=== PATIENT | male | born 1975 | race Caucasian/White ===

== ENCOUNTER 2020-07-16 12:58 | Emergency (ER) | payer MEDICAID ==
[~2020-07-16] VITALS: Ht 182.9 cm; Wt 84.1 kg
[2020-07-16 13:32] VITALS: BP 119/80
[2020-07-16] MEDS ORDERED: IBUP-1984 PO (14:32)
== END 2020-07-16 14:51 | disposition home or self-care (01) ==
LOC: ER 12:59
DX: S93.402A Sprain of unspecified ligament of left ankle, initial encounter (principal); W17.89XA Other fall from one level to another, initial encounter; Y93.89 Activity, other specified; Y92.89 Other specified places as the place of occurrence of the external cause; Y99.8 Other external cause status
CPT/HCPCS: 73610; 73630; 99284

== ENCOUNTER 2024-11-11 18:33 | Inpatient (IN) | payer MEDICAID ==
[~2024-11-11] VITALS: Ht 182.9 cm; Wt 80.2 kg
[2024-11-11 19:12] LABS: BILIRUBIN,URINE NEGATIVE (Neg); CLARITY,URINE CLEAR (Clear); COLOR,URINE YELLOW (Yellow); GLUCOSE, URINE NEGATIVE (Neg); KETONES,URINE NEGATIVE (Neg); LEUKOCYTE ESTERASE ,URINE NEGATIVE (Neg); NITRITES, URINE NEGATIVE (Neg); OCCULT BLOOD,URINE NEGATIVE (Neg); PROTEIN,URINE TRACE mg/dl (Neg); UA COLLECTION TYPE CLN CATCH MIDSTREAM; UROBILINOGEN,URINE 0.2 E.U/dL (0.2-1.0)
[2024-11-11 19:13] LABS: BASOPHILS % (AUTO) 0.6 % (0-1); EOSINOPHILS # (AUTO) 0.3 X10'3 (0-0.9); EOSINOPHILS % (AUTO) 4.1 % (0-6); HEMOGLOBIN 15.8 g/dl (14.0-17.9); LYMPHOCYTES # (AUTO) 1.5 X10'3 (1.1-4.8); LYMPHOCYTES % (AUTO) 20.9 % (21-51); MEAN CORPUSCULAR HEMOGLOBIN 31.6 PG (27.0-31.0); MEAN CORPUSCULAR HGB CONC 33.7 g/dL (33.0-36.5); MEAN CORPUSCULAR VOLUME 93.9 FL (78-98); MEAN PLATELET VOLUME 7.5 FL (7.4-10.4); MONOCYTES # (AUTO) 0.9 X10'3 (0-0.9); MONOCYTES % (AUTO) 13.1 % (2-12); NEUTROPHILS # (AUTO) 4.4 X10'3 (1.8-7.7); NEUTROPHILS % (AUTO) 61.3 % (42-75); PLATELET COUNT 308 X10'3 (140-440); RED BLOOD COUNT 5.01 X10'6 (4.70-6.10); RED CELL DISTRIBUTION WIDTH 13.3 % (11.5-14.5); WHITE BLOOD COUNT 7.2 X10'3 (4.5-11.0)
[2024-11-11 19:26] LABS: ALANINE AMINOTRANSFERASE 64 U/L (12-78); ALBUMIN 3.4 G/DL (3.4-5.0); ALBUMIN/GLOBULIN RATIO 0.8 (1.1-1.5); ALKALINE PHOSPHATASE 74 IU/L (46-116); ANION GAP 6 (8-16); ASPARTATE AMINO TRANSFERASE 37 U/L (10-37); BILIRUBIN,TOTAL 0.9 MG/DL (0.1-1.0); BLOOD UREA NITROGEN 10 MG/DL (7-18); BUN/CREATININE RATIO 12.2 (10.0-20.0); CALCIUM 8.9 MG/DL (8.5-10.1); CHLORIDE 101 MMOL/L (99-107); CREATININE 0.82 MG/DL (0.60-1.10); GLUCOSE 91 MG/DL (70-104); LIPASE 36 U/L (16-77); SODIUM 135 MMOL/L (135-145); TOTAL PROTEIN 7.5 G/DL (6.4-8.2); eCRCL 122 ML/MIN; eGFR > 90 ML/MIN
[2024-11-11 19:27] LABS: BACTERIA,URINE FEW /HPF (Neg); CAL OXALATE CRYSTALS 2+ /HPF (NEGATIVE); MUCUS STRANDS MODERATE /LPF (Neg); RBC,URINE NONE SEEN /HPF (0-2); SQUAMOUS EPITHELIAL CELL,UR FEW /LPF (FEW); WBC,URINE 0-4 /HPF (0-4)
[2024-11-11] MEDS: ondansetron 4mg rapidly disintigrating tab PO ONE (20:24)
[2024-11-11] MEDS ORDERED: HYDROcodone/acetaminophen 5mg/325mg tablet PO PRN (22:50)
[2024-11-11] MEDS ORDERED: ondansetron/PF 4mg/2ml inj IV PRN (22:50)
[2024-11-11] MEDS ORDERED: magnesium Cl slow-release 64mg tablet PO PRN (22:50)
[2024-11-11] MEDS ORDERED: metoclopramide 5 mg/ml inj IV PRN (22:50)
[2024-11-11] MEDS ORDERED: morphine 2 MG/ML inj. syringe IV PRN ×2 (22:50)
[2024-11-11] MEDS ORDERED: ondansetron 4mg rapidly disintigrating tab PO PRN (22:50)
[2024-11-11] MEDS ORDERED: mag hydrox/Alum hydrox/simeth 30ml oral suspension PO PRN (22:50)
[2024-11-11] MEDS ORDERED: potassium Cl 40MEQ/1/2NS 520ml 520 ML IV PRN (22:50)
[2024-11-11] MEDS ORDERED: bisacodyl 10mg suppository rectal RC PRN (22:50)
[2024-11-11] MEDS ORDERED: HYDROmorphone inj. 0.5 MG/0.5 ML DISP.SYRIN IV PRN (22:50)
[2024-11-11] MEDS ORDERED: magnesium hydroxide 30ml (MOM) UD suspension PO PRN (22:50)
[2024-11-11] MEDS ORDERED: magnesium sulf-water 4G/100mL 100 ML IV PRN (22:50)
[2024-11-11] MEDS ORDERED: HYDROcodone/acetaminophen 10/325mg tab PO PRN (22:50)
[2024-11-11] MEDS ORDERED: acetaminophen 325mg tablet PO PRN ×2 (22:50)
[2024-11-11] MEDS ORDERED: potassium Cl 20 mEq SR tablet PO PRN ×2 (22:50)
[2024-11-11] MEDS ORDERED: magnesium sulf-water 2g/50mL 50 ML IV PRN (22:50)
[2024-11-11] MEDS: morphine 4 MG/ML inj SYRINge IV ONE (23:42)
[2024-11-11] MEDS: ondansetron/PF 4mg/2ml inj IV ONE (23:42)
[2024-11-11] MEDS: normal saline 1000ml 1,000 ML IV ONE (23:45)
[2024-11-12] VITALS (8 sets, daily range): BP systolic 122–149; BP diastolic 79–93; PULSE 74–102; RESP 14–22; TEMP 96.9–98.4; O2SAT 96–100
[2024-11-12] MEDS: normal saline 1000ml 1,000 ML IV SCH (00:14)
[2024-11-12] MEDS ORDERED: NO HOME MEDS (00:18)
[2024-11-12 05:26] LABS: BASOPHILS # (AUTO) 0.1 X10'3 (0-0.2); EOSINOPHILS # (AUTO) 0.3 X10'3 (0-0.9); EOSINOPHILS % (AUTO) 5.6 % (0-6); HEMATOCRIT 39.9 % (42.0-52.0); LYMPHOCYTES # (AUTO) 1.7 X10'3 (1.1-4.8); LYMPHOCYTES % (AUTO) 30.4 % (21-51); MEAN CORPUSCULAR HEMOGLOBIN 32.4 PG (27.0-31.0); MEAN CORPUSCULAR HGB CONC 35.1 g/dL (33.0-36.5); MEAN CORPUSCULAR VOLUME 92.4 FL (78-98); MEAN PLATELET VOLUME 6.9 FL (7.4-10.4); MONOCYTES # (AUTO) 0.6 X10'3 (0-0.9); MONOCYTES % (AUTO) 11.3 % (2-12); NEUTROPHILS # (AUTO) 2.8 X10'3 (1.8-7.7); NEUTROPHILS % (AUTO) 51.7 % (42-75); PLATELET COUNT 270 X10'3 (140-440); RED BLOOD COUNT 4.32 X10'6 (4.70-6.10); RED CELL DISTRIBUTION WIDTH 13.3 % (11.5-14.5); WHITE BLOOD COUNT 5.4 X10'3 (4.5-11.0)
[2024-11-12 06:19] LABS: ALANINE AMINOTRANSFERASE 55 U/L (12-78); ALBUMIN 2.9 G/DL (3.4-5.0); ALKALINE PHOSPHATASE 64 IU/L (46-116); ANION GAP 7 (8-16); ASPARTATE AMINO TRANSFERASE 26 U/L (10-37); BILIRUBIN,TOTAL 0.8 MG/DL (0.1-1.0); BLOOD UREA NITROGEN 9 MG/DL (7-18); BUN/CREATININE RATIO 11.4 (10.0-20.0); CALCIUM 7.9 MG/DL (8.5-10.1); CHLORIDE 105 MMOL/L (99-107); CREATININE 0.79 MG/DL (0.60-1.10); GLUCOSE 80 MG/DL (70-104); MAGNESIUM 1.7 MG/DL (1.5-2.4); POTASSIUM 3.9 MMOL/L (3.5-5.1); SODIUM 138 MMOL/L (135-145); TOTAL CARBON DIOXIDE 26.2 MMOL/L (24-32); TOTAL PROTEIN 5.7 G/DL (6.4-8.2); eCRCL 127 ML/MIN; eGFR > 90 ML/MIN
[2024-11-12] MEDS: docusate sod 100mg capsule PO SCH (08:00)
[2024-11-12] MEDS: enoxaparin 40mg/0.4ml syringe SUBCUT SCH (08:18)
[2024-11-12] MEDS: K and/or MAG REPLACEMENT MC SCH (08:25)
[2024-11-12 18:47] LABS: URINE AMPHETAMINE SCREEN POSITIVE (Neg); URINE BARBITUATE SCREEN NEGATIVE (Neg); URINE BENZODIAZEPINES SCREEN NEGATIVE (Neg); URINE CANNABINOID SCREEN NEGATIVE (Neg); URINE COCAINE SCREEN NEGATIVE (Neg); URINE METHADONE SCREEN NEGATIVE (Neg); URINE OPIATE SCREEN POSITIVE (Neg); URINE PHENCYCLIDINE SCREEN NEGATIVE (Neg)
[2024-11-13 05:26] LABS: BASOPHILS % (AUTO) 0.3 % (0-1); EOSINOPHILS # (AUTO) 0.2 X10'3 (0-0.9); HEMATOCRIT 42.7 % (42.0-52.0); HEMOGLOBIN 14.7 g/dl (14.0-17.9); LYMPHOCYTES # (AUTO) 1.1 X10'3 (1.1-4.8); LYMPHOCYTES % (AUTO) 13.6 % (21-51); MEAN CORPUSCULAR HEMOGLOBIN 32.2 PG (27.0-31.0); MEAN CORPUSCULAR HGB CONC 34.5 g/dL (33.0-36.5); MEAN CORPUSCULAR VOLUME 93.2 FL (78-98); MEAN PLATELET VOLUME 7.1 FL (7.4-10.4); MONOCYTES # (AUTO) 0.8 X10'3 (0-0.9); MONOCYTES % (AUTO) 9.8 % (2-12); NEUTROPHILS # (AUTO) 5.9 X10'3 (1.8-7.7); NEUTROPHILS % (AUTO) 74.3 % (42-75); PLATELET COUNT 266 X10'3 (140-440); RED BLOOD COUNT 4.58 X10'6 (4.70-6.10); RED CELL DISTRIBUTION WIDTH 12.9 % (11.5-14.5)
[2024-11-13 05:44] LABS: ALANINE AMINOTRANSFERASE 52 U/L (12-78); ALBUMIN 2.9 G/DL (3.4-5.0); ALKALINE PHOSPHATASE 72 IU/L (46-116); ANION GAP 12 (8-16); ASPARTATE AMINO TRANSFERASE 25 U/L (10-37); BILIRUBIN,TOTAL 1.2 MG/DL (0.1-1.0); BLOOD UREA NITROGEN 9 MG/DL (7-18); BUN/CREATININE RATIO 12.3 (10.0-20.0); CALCIUM 8.1 MG/DL (8.5-10.1); CHLORIDE 103 MMOL/L (99-107); CREATININE 0.73 MG/DL (0.60-1.10); GLUCOSE 65 MG/DL (70-104); MAGNESIUM 1.9 MG/DL (1.5-2.4); POTASSIUM 3.9 MMOL/L (3.5-5.1); SODIUM 139 MMOL/L (135-145); TOTAL CARBON DIOXIDE 23.7 MMOL/L (24-32); TOTAL PROTEIN 5.9 G/DL (6.4-8.2); eCRCL 137 ML/MIN; eGFR > 90 ML/MIN
[2024-11-13 06:00] VITALS: BP 127/84; PULSE 89; RESP 19; TEMP 97.8; O2SAT 96
[2024-11-13 11:15] VITALS: BP 125/78; PULSE 86; RESP 22; TEMP 99; O2SAT 97
[2024-11-13] MEDS: nicotine 14mg patch - 24hr TD SCH (13:03)
[2024-11-13 17:17] VITALS: BP 142/93; PULSE 87; RESP 16; TEMP 98.6; O2SAT 98
[2024-11-13 20:00] VITALS: RESP 16; O2SAT 100
[2024-11-13 22:00] VITALS: BP 140/89; PULSE 81; RESP 16; TEMP 98.2; O2SAT 100
[2024-11-14 05:22] LABS: BASOPHILS % (AUTO) 0.5 % (0-1); EOSINOPHILS # (AUTO) 0.2 X10'3 (0-0.9); EOSINOPHILS % (AUTO) 3.2 % (0-6); HEMATOCRIT 44.6 % (42.0-52.0); HEMOGLOBIN 15.2 g/dl (14.0-17.9); LYMPHOCYTES # (AUTO) 1.4 X10'3 (1.1-4.8); LYMPHOCYTES % (AUTO) 18.1 % (21-51); MEAN CORPUSCULAR HEMOGLOBIN 31.8 PG (27.0-31.0); MEAN CORPUSCULAR HGB CONC 34.1 g/dL (33.0-36.5); MEAN CORPUSCULAR VOLUME 93.2 FL (78-98); MEAN PLATELET VOLUME 7.3 FL (7.4-10.4); MONOCYTES # (AUTO) 0.7 X10'3 (0-0.9); MONOCYTES % (AUTO) 8.9 % (2-12); NEUTROPHILS # (AUTO) 5.2 X10'3 (1.8-7.7); NEUTROPHILS % (AUTO) 69.3 % (42-75); PLATELET COUNT 288 X10'3 (140-440); RED BLOOD COUNT 4.78 X10'6 (4.70-6.10); RED CELL DISTRIBUTION WIDTH 13.4 % (11.5-14.5); WHITE BLOOD COUNT 7.5 X10'3 (4.5-11.0)
[2024-11-14 05:37] LABS: ALANINE AMINOTRANSFERASE 38 U/L (12-78); ALBUMIN 2.8 G/DL (3.4-5.0); ALBUMIN/GLOBULIN RATIO 0.8 (1.1-1.5); ALKALINE PHOSPHATASE 65 IU/L (46-116); ANION GAP 9 (8-16); ASPARTATE AMINO TRANSFERASE 22 U/L (10-37); BILIRUBIN,TOTAL 0.8 MG/DL (0.1-1.0); BLOOD UREA NITROGEN 6 MG/DL (7-18); BUN/CREATININE RATIO 8.1 (10.0-20.0); CALCIUM 8.3 MG/DL (8.5-10.1); CHLORIDE 104 MMOL/L (99-107); CREATININE 0.74 MG/DL (0.60-1.10); GLUCOSE 80 MG/DL (70-104); MAGNESIUM 1.9 MG/DL (1.5-2.4); POTASSIUM 3.6 MMOL/L (3.5-5.1); SODIUM 138 MMOL/L (135-145); TOTAL CARBON DIOXIDE 25.5 MMOL/L (24-32); TOTAL PROTEIN 6.5 G/DL (6.4-8.2); eCRCL 135 ML/MIN; eGFR > 90 ML/MIN
[2024-11-14 06:00] VITALS: BP 142/88; PULSE 81; RESP 16; TEMP 98.8; O2SAT 100
[2024-11-14 10:00] VITALS: BP 128/75; PULSE 77; RESP 24; TEMP 98.1; O2SAT 98
[2024-11-14 15:55] VITALS: RESP 16; O2SAT 98
[2024-11-14 18:00] VITALS: BP 126/93; PULSE 96; RESP 18; TEMP 97; O2SAT 94
[2024-11-14 20:00] VITALS: RESP 16; O2SAT 98
[2024-11-14 22:00] VITALS: BP 125/76; PULSE 75; RESP 16; TEMP 98.2; O2SAT 98
[2024-11-14] MEDS: nicotine 14mg patch - 24hr TD SCH (23:24)
[2024-11-15 05:06] LABS: BASOPHILS # (AUTO) 0.1 X10'3 (0-0.2); BASOPHILS % (AUTO) 0.8 % (0-1); EOSINOPHILS # (AUTO) 0.3 X10'3 (0-0.9); EOSINOPHILS % (AUTO) 4.1 % (0-6); HEMOGLOBIN 14.2 g/dl (14.0-17.9); LYMPHOCYTES # (AUTO) 1.7 X10'3 (1.1-4.8); LYMPHOCYTES % (AUTO) 23.3 % (21-51); MEAN CORPUSCULAR HEMOGLOBIN 32.3 PG (27.0-31.0); MEAN CORPUSCULAR HGB CONC 34.7 g/dL (33.0-36.5); MEAN CORPUSCULAR VOLUME 93.2 FL (78-98); MEAN PLATELET VOLUME 6.9 FL (7.4-10.4); MONOCYTES # (AUTO) 0.7 X10'3 (0-0.9); MONOCYTES % (AUTO) 9.1 % (2-12); NEUTROPHILS # (AUTO) 4.6 X10'3 (1.8-7.7); NEUTROPHILS % (AUTO) 62.7 % (42-75); PLATELET COUNT 237 X10'3 (140-440); RED CELL DISTRIBUTION WIDTH 13.2 % (11.5-14.5); WHITE BLOOD COUNT 7.4 X10'3 (4.5-11.0)
[2024-11-15 05:40] LABS: ALANINE AMINOTRANSFERASE 49 U/L (12-78); ALBUMIN 2.5 G/DL (3.4-5.0); ALBUMIN/GLOBULIN RATIO 0.7 (1.1-1.5); ALKALINE PHOSPHATASE 57 IU/L (46-116); ANION GAP 8 (8-16); ASPARTATE AMINO TRANSFERASE 36 U/L (10-37); BILIRUBIN,TOTAL 0.4 MG/DL (0.1-1.0); BLOOD UREA NITROGEN 6 MG/DL (7-18); BUN/CREATININE RATIO 7.9 (10.0-20.0); CALCIUM 8.2 MG/DL (8.5-10.1); CHLORIDE 108 MMOL/L (99-107); CREATININE 0.76 MG/DL (0.60-1.10); GLUCOSE 103 MG/DL (70-104); MAGNESIUM 1.8 MG/DL (1.5-2.4); SODIUM 139 MMOL/L (135-145); TOTAL CARBON DIOXIDE 23.4 MMOL/L (24-32); TOTAL PROTEIN 6.1 G/DL (6.4-8.2); eCRCL 132 ML/MIN; eGFR > 90 ML/MIN
[2024-11-15 06:00] VITALS: BP 129/81; PULSE 65; RESP 18; TEMP 98.1; O2SAT 98
[2024-11-15 10:00] VITALS: BP 120/80; PULSE 89; RESP 18; TEMP 98.6; O2SAT 98
== END 2024-11-15 12:40 | disposition home or self-care (01) | DRG 247 ==
LOC: ER 18:34 → ED HOLD 22:50 → SUR 3N 11-12 01:05
PROVIDERS: ADMIT Internal Medicine Critical Care Medicine; ATTEND Internal Medicine
PROC: 0D9670Z Drainage of Stomach with Drainage Device, Via Natural or Artificial Opening (ICD-10-PCS; principal; 2024-11-11)
DX: K56.600 Partial intestinal obstruction, unspecified as to cause (principal); F15.10 Other stimulant abuse, uncomplicated; F17.210 Nicotine dependence, cigarettes, uncomplicated
CPT/HCPCS: 36415; 43762; 74018; 74176; 80053; 80305; 81001; 83605; 83690; 83735; 83880; 84145; 85025; 87081; 99285; A6258; G0378; J1650; J2270; J2405; J7030

== ENCOUNTER 2024-12-22 11:32 | Inpatient (IN) | payer MEDICAID ==
[~2024-12-22] VITALS: Ht 182.9 cm; Wt 93.2 kg
[2024-12-22] VITALS (9 sets, daily range): BP systolic 90–112; BP diastolic 63–80; PULSE 54–97; RESP 10–20; TEMP 98.2; O2SAT 95–99
[2024-12-22] MEDS ORDERED: heparin 25,000 UNIT/250ml bag 250 ML IV PRN (11:40)
[2024-12-22] MEDS ORDERED: heparin 10,000 units/1 ML INJ IV PRN (11:40)
[2024-12-22] MEDS ORDERED: heparin 10,000 units/1 ML INJ IV ONE (11:40)
--- NOTE | 2024-12-22 11:41 | Physician Documentation ---
History of Present Illness ~ Chief Complaint: Chest Pain Stated Complaint: CP/NUMBNESS Time Seen by MD: 11:38 Primary Medical Doctor: None Source: family (mother) HPI 49-year-old male history of tobacco use presenting for chest pain. Began 15 minutes prior to arrival. Described as crushing sensation associated with shortness of breath. Endorses meth use last night. He was just admitted for small-bowel obstruction on November 11 and discharged on November 14 after undergoing conservative management with NG tube placement and IV fluids. Medication Reconciliation Allergies: Coded Allergies: No Known Allergies (Unverified , 07/16/20) No Active Prescriptions or Reported Meds Past Medical History Past Medical History: No Pertinent History Past Surgical History: noncontributory Alcohol Use: None Drug Use: none Review of Systems Constitutional: Reports: diaphoresis; Denies: fever Respiratory: Reports: shortness of breath; Denies: cough Cardiovascular: Reports: chest pain Gastrointestinal: Denies: abdominal pain Physical Exam Vital Signs: Temperature: 97.2, Source: Temporal, Heart Rate: 107, Respiratory Rate: 20, BP: 128/90, Pulse Oximetry: 97, Weight: 93.180 Oxygen Flow Rate: 0 Physical Exam Diaphoretic, ashen Pulmonary clear to auscultation bilaterally Cardiac no murmur no JVD no lower extremity edema Abdomen soft nontender Neuro awake alert oriented Progress Progress Note 1148 d/w Dr. Vigil cardiolist at bedside agrees with STEMI activation, plan for emergent PCI Results/Orders Results/Orders Orders - EMELY FRY MD Cbc/Diff (12/22/24 11:39) Electrocardiogram (12/22/24 11:39) Chest,Single View (12/22/24 11:39) Saline Lock (12/22/24 11:39) Monitor (12/22/24 11:39) Oxygen (12/22/24 11:39) Nitroglycerin Sublingual Tab (Nitrostat (12/22/24 11:40) Hs Troponin I W Calculations (12/22/24 13:39) Hs Troponin I W Calculations (12/22/24 14:39) Heparin 25,000 Unit/250ml Bag (Heparin 2 (12/22/24 11:40) Heparin 10,000 Unit/Ml 1ml (Heparin 10,0 (12/22/24 11:40) Page Hospitalist (12/22/24 11:41) Fill Out Med Reconciliation (12/22/24 11:41) Drug Screen, Urine (12/22/24 12:03) Hs Troponin I W Calculations (12/22/24 12:09) BMP (12/22/24 12:09) MG (12/22/24 12:09) PBNP (12/22/24 12:09) Pt Inr (12/22/24 12:09) PTT (12/22/24 12:09) Completed Orders - EMELY FRY MD Aspirin 81mg Chew Tablet (Aspirin 81mg C (12/22/24 11:40) Heparin 10,000 Unit/Ml 1ml (Heparin 10,0 (12/22/24 11:55) Lorazepam Inj (Ativan Inj) (12/22/24 12:00) Labetalol Inj. (Trandate 20 Mg/4ml Syrin (12/22/24 12:00) Message To Nursing (12/22/24 12:00) Lidocaine 1% 30ml Vial (Xylocaine 1% Via (12/22/24 12:00) Midazolam 1 Mg/Ml 2ml Inj. (Versed 1 Mg/ (12/22/24 12:01) Fentanyl/Pf (Fentanyl 0.05 Mg/Ml Syringe (12/22/24 12:01) Iohexol 350mg/Ml 50ml Inj (Omnipaque 350 (12/22/24 12:01) Heparin 1,000unit/Ml 10ml Vial (Heparin (12/22/24 12:01) Iohexol 350mg/Ml 100ml (Omnipaque 350mg/ (12/22/24 12:01) Heparin 1,000 Units/Ns 500ml (Heparin 1, (12/22/24 12:01) Nitroglycerin 500mcg/5ml D5w (Nitroglyce (12/22/24 12:01) Medications Received in ER Medications (Trade) Dose Ordered Sig/Danya Route PRN Reason Start Time Stop Time Status Last Admin Dose Admin (aspirin 81MG chew tablet) 324 mg ONCE ONCE PO 12/22/24 11:40 12/22/24 11:42 DC 12/22/24 11:49 324 MG (Nitrostat SL tablet) 0.4 mg Q5MIN PRN SL Chest pain Q5min PRNx3-call 12/22/24 11:40 12/23/24 11:39 12/22/24 11:55 0.4 MG (heparin 10,000 unit/ml 1ml inj) 4,000 units ONCE ONCE IV 12/22/24 11:55 12/22/24 11:56 DC 12/22/24 12:07 4,000 UNITS (Ativan inj) 1 mg ONCE ONCE IV 12/22/24 12:00 12/22/24 12:01 DC 12/22/24 12:02 1 MG (Trandate 20 mg/ 4ml syringe) 10 mg ONCE ONCE IV 12/22/24 12:00 12/22/24 12:01 DC 12/22/24 12:03 10 MG Vital Signs 12/22/24 12/22/24 11:39 11:56 Temp 97.2 Pulse 107 104 Resp 20 16 B/P (MAP) 128/90 127/63 (84) Pulse Ox 97 99 O2 Flow Rate 0 0 Laboratory Tests Test 12/22/24 11:55 CBC Comment Coagulation Comments Chemistry Comments EKG/XRAY/CT/US/VASC/MRI EKG : Additional Comment I independently interpreted EKG time 11:32 a.m. indication chest pain normal sinus rhythm rate 63 normal axis normal intervals inferior ST-elevation ST depression lead I, aVL Heart Score: Heart Score Response (Comments) Value History Highly Suspicious [address]-Deviation 2 Age 45-64 1 Risk Factors 1 or 2 risk factors 1 Troponin N/A 0 Total 6 Medical Decision Making Additional info obtained from: old records, family Additional Information Acute coronary syndrome, aortic dissection Departure Disposition: ADMITTED INPATIENT Admitted to Inpatient Unit: to hospitalist Impression: Primary Impression: STEMI (ST elevation myocardial infarction) Qualified Codes: I21.3 - ST elevation (STEMI) myocardial infarction of unspecified site Additional Impression: Methamphetamine abuse Referrals: NO PRIMARY CARE PROVIDER (PCP) Prescriptions No Active Prescriptions or Reported Meds Critical Care Note Total Time (mins): 30 Critical Care Note The very real possibility of a deterioration of this patient's condition required the highest level of my preparedness for sudden, emergent intervention. I provided critical care services, which included medication orders, frequent reevaluations of the patient's condition and response to treatment, ordering and reviewing test results, and discussing the case with various consultants. Excludes time spent performing separately billable procedures. The critical care time associated with the care of the patient was 30 minutes in the management of acute ST-elevation AL Signature Scribe Signature: sterling Attestation: EMELY Tomlinson MD December 22, 2024 11:41
[2024-12-22] MEDS: aspirin 81mg tab.chew PO ONE (11:49)
[2024-12-22] MEDS: nitroGLYCERIN 0.4mg SUBLingual tab SL PRN (11:55)
[2024-12-22] MEDS ORDERED: LIDOcaine 1% 30ml preserv. free vial ONE (12:00)
[2024-12-22] MEDS ORDERED: fentaNYL/PF 50MCG/1 ML 2ML syringe ONE (12:01)
[2024-12-22] MEDS ORDERED: iohexol 350 MG/ML 50ML vial IV ONE (12:01)
[2024-12-22] MEDS ORDERED: heparin 1,000unit/ml 10ml vial 10 ML ONE (12:01)
[2024-12-22] MEDS ORDERED: iohexol 350MG/ML 100ml bottle IV ONE ×2 (12:01→12:38)
[2024-12-22] MEDS ORDERED: nitroGLYCERIN 500mcg/5mL D5W 5 ML IV ONE (12:01)
[2024-12-22] MEDS ORDERED: midazolam 1 mg/ML 2ml injection ONE (12:01)
[2024-12-22] MEDS: LORazepam 2 mg/ml vial IV ONE (12:02)
[2024-12-22] MEDS: labetalol 20mg/4ml (5mg/ml) syringe IV ONE (12:03)
[2024-12-22] MEDS: MESSAGE TO NURSING IV ONE (12:05)
[2024-12-22 12:07] LABS: BASOPHILS # (AUTO) 0.1 X10'3 (0-0.2); BASOPHILS % (AUTO) 0.7 % (0-1); EOSINOPHILS # (AUTO) 0.3 X10'3 (0-0.9); EOSINOPHILS % (AUTO) 3.4 % (0-6); HEMOGLOBIN 15.9 g/dl (14.0-17.9); LYMPHOCYTES # (AUTO) 2.6 X10'3 (1.1-4.8); LYMPHOCYTES % (AUTO) 29.3 % (21-51); MEAN CORPUSCULAR HGB CONC 33.9 g/dL (33.0-36.5); MEAN CORPUSCULAR VOLUME 94.2 FL (78-98); MEAN PLATELET VOLUME 7.5 FL (7.4-10.4); MONOCYTES # (AUTO) 0.5 X10'3 (0-0.9); MONOCYTES % (AUTO) 5.5 % (2-12); NEUTROPHILS # (AUTO) 5.5 X10'3 (1.8-7.7); NEUTROPHILS % (AUTO) 61.1 % (42-75); PLATELET COUNT 406 X10'3 (140-440); RED BLOOD COUNT 4.98 X10'6 (4.70-6.10); RED CELL DISTRIBUTION WIDTH 14.1 % (11.5-14.5); WHITE BLOOD COUNT 8.9 X10'3 (4.5-11.0)
[2024-12-22] MEDS: heparin 10,000 units/1 ML INJ IV ONE (12:07)
[2024-12-22] MEDS ORDERED: verapamil 2.5 mg/ml inj IV ONE (12:10)
[2024-12-22] MEDS ORDERED: acetaminophen 325mg tablet PO PRN (12:15)
[2024-12-22] MEDS ORDERED: ondansetron/PF 4mg/2ml inj IV PRN (12:15)
[2024-12-22] MEDS ORDERED: atorvastatin 20mg tablet PO SCH (12:20)
[2024-12-22] MEDS ORDERED: DOPamine 400mg/D5W 250ml 250 ML IV ONE (12:30)
[2024-12-22] MEDS ORDERED: atropine 0.1mg/ml 10ml syringe ONE (12:30)
--- NOTE | 2024-12-22 12:34 | HISTORY AND PHYSICAL-Residence ---
History & Physical Providers to CC Resident Creating Document: JESSY OCAMPO RES ~ History of Present Illness Primary Medical Doctor: None Reason for Admit\Complaint: Chest pain/STEMI History of Present Illness The patient is a 49-year-old male with a longstanding history of methamphetamine use (30 years) and cigarette smoking ( -1 pck/day), who does not have a PCP, lives in a trailer on his mother's property and wears an ankle monitor was brought to the ER by his mother (Andreea Cam [phone]) after a sudden onset of severe, crushing chest pain. The pain was described as 10/10 in intensity, located on the left side, and radiating to the right chest, left arm, and neck. It was associated with diaphoresis and shortness of breaths. Per mom, the pain began while he was at home, managed to walk approximately 20 years to his mother's house, reported the pain and therefore she decided to bring him to the hospital. His mother was present at the bedside and contributed to the history. Confirming the timeline and severity of the symptoms. In ER, he was evaluated by Dr. Loaiza, EKGs showed ST segment elevation in leads two, three, and AVF, as well as some anterior leads, with a reciprocal depression in lead I and aVL., concerning for an acute inferior myocardial infarction. The patient was urgently taken to the lab courier after receiving aspirin, nitroglycerin, and heparin infusion. Allergies: Coded Allergies: No Known Allergies (Unverified , 07/16/20) Home Medications Home Medications Active No Active Prescriptions or Reported Medications Past Medical History Past Medical History No significant past medical history except recent admission for partial bowel obstruction which was treated conservatively. Past Surgical History Surgical History Comment No surgical history Past Social History Social History Comment The patient is a 49-year-old male with a longstanding history of methamphetamine use (30 years) and cigarette smoking ( -1 pck/day), who does not have a PCP, lives in a trailer on his mother's property and wears an ankle monitor Alcohol Use: None Drug Use: None ROS All Other Systems: Reviewed and Negative ROS As stated above in the HPI, otherwise all systems are reviewed and negative. Constitutional: Reports: diaphoresis; Denies: fever Respiratory: Reports: shortness of breath; Denies: cough Cardiovascular: Reports: chest pain Gastrointestinal: Denies: abdominal pain Exam Vitals: Vital Signs Date Time Temp Pulse Resp B/P (MAP) Pulse Ox O2 Delivery O2 Flow Rate FiO2 12/22/24 12:05 68 16 116/77 (90) 95 0 12/22/24 11:39 97.2 General Appearance: In acute distress due to crushing chest pain 10/10 HEENT: Atraumatic, normocephalic, HUMZA, EOMI. Normal oropharynx, moist oral mucosa. Neck: Trachea midline. Supple, normal ROM. No JVD, bruit, lymphadenopathy or masses, or other lesions. Respiratory: Chest wall is symmetric and without deformity. No signs of respiratory distress. Equal breath sounds bilaterally. No wheeze, rub, Rales or crackles. Cardiac: RRR, no murmur, rub or gallop. Normal S1 and S2. GI: No tenderness. Abdomen symmetric, nondistended, soft, normal bowel sounds x4 quadrant normoactive. No guarding, no rebound or rigidity. No hepatosplenomegaly. No masses, no bruit, no flank pain bilaterally. Extremities: Normal ROM, no swelling, non-tender. Distal pulses full symmetrical, no clubbing, cyanosis, edema, capillary refill less than 2 seconds. Wearing an ankle monitor/bracelet Skin: Intact, dry, warm, no rashes or petechia. Neuro: Speech is clear, alert and oriented x4. No sensory or motor deficit, DTRs normal. Cranial nerves II to XII intact. Psych: Normal affect, good eye contact, no apparent hallucination, normal speech. Diagnostic Data Last Recorded Lab Results: 12/22/24 1155 Diagnostic Data: Laboratory Tests Test 12/22/24 11:55 Coagulation Comments Advance Care Planning Advanced Care plannin - 30 Minutes Additional Plan Assessment and plan: This is a 49-year-old male who was brought to the ER by his mother (Andreea Cam [phone]) after a sudden onset of severe, crushing chest pain. The pain was described as 10/10 in intensity, located on the left side, and radiating to the right chest, left arm, and neck. It was associated with diaphoresis and shortness of breaths. ST-elevation myocardial infarction/STEMI Inferior/- + anterior wall Presented with classic ischemic chest pain and EKG showing ST elevation in inferior leads, and some anterior leads, with reciprocal changes. Troponin elevated Taken emergently to the cardiac catheterization lab for evaluation and reperfusion - awaiting lab courier findings for coronary anatomy intervention Received aspirin, nitroglycerin, heparin infusion Started atorvastatin 40 mg, carvedilol 3.125 mg, and lisinopril 5 mg Monitor serial troponins, telemetry, and EKGs Dr. Vigil is leading management Hyperlipidemia: LDL 131, goal < 70 Continue atorvastatin 40 mg daily Repeat lipid panel in three months outpatient Methamphetamine use disorder: Chronic methamphetamine use; 30 years Major risk factor for vasospasm, arrhythmia, and premature CAD Toxicology screen obtained Dr. Vigil educated him on Cardiac risk of continued meth use rehabilitation services counselor consult, substance use navigator consult requested Tobacco use disorder: Longstanding daily smoking Strongly encouraged smoking cessation Social and living situation/barriers to care Lives in a trailer on mother's property; no PCP We will consider involving social work for support with follow up, transportation, and linkage to primary care We will discuss close outpatient cardiology follow up post discharge DVT prophylaxis: On heparin infusion Code status: Full code Jessy Ocampo Internal Medicine Resident Date of Service: December 22, 2024 Billing Provider: FABIÁN VALENCIA MD Common Visit Codes: [id number] INP/OBS CARE (HIGH) JESSY OCAMPO, VICTORINA December 22, 2024 12:34 FABIÁN VALENCIA MD December 25, 2024 17:33
[2024-12-22] MEDS ORDERED: phenylephrine 10mg/ml inj. ONE (12:43)
[2024-12-22] MEDS ORDERED: DOBUTamine-DoBUTrex 500mg/D5W 250 ML IV ONE (12:53)
[2024-12-22 13:05] LABS: ALBUMIN 2.9 G/DL (3.4-5.0); ANION GAP 7 (8-16); BLOOD UREA NITROGEN 8 MG/DL (7-18); BUN/CREATININE RATIO 10.3 (10.0-20.0); CALCIUM 7.8 MG/DL (8.5-10.1); CHLORIDE 106 MMOL/L (99-107); CHOL/HDL RATIO 4.2 (0.00-4.99); CHOLESTEROL 189 MG/DL (0-200); CREATININE 0.78 MG/DL (0.60-1.10); GLUCOSE 123 MG/DL (70-104); HDL CHOLESTEROL 45 MG/DL (35-60); LDL CHOLESTEROL 131 MG/DL (50-100); MAGNESIUM 1.7 MG/DL (1.5-2.4); POTASSIUM 3.1 MMOL/L (3.5-5.1); PRO BRAIN NATRIURETIC PEPTIDE 83 PG/ML (0-125); SODIUM 138 MMOL/L (135-145); TRIGLYCERIDES 67 MG/DL (20-135); eCRCL 127 ML/MIN; eGFR > 90 ML/MIN
[2024-12-22 13:11] LABS: INR 1.2 INR; PROTHROMBIN TIME 11.9 SECONDS (9.0-12.0)
[2024-12-22] MEDS ORDERED: clopidogrel 300mg tablet ONE (13:18)
[2024-12-22] MEDS ORDERED: NORepinephrine 1 mg/ml inj IV ONE (13:23)
[2024-12-22 13:27] LABS: APTT > 139 SECONDS (22-32)
[2024-12-22] MEDS ORDERED: magnesium 1 GM/2 ML inj ONE (13:56)
[2024-12-22] MEDS: magnesium sulf-water 2g/50mL 50 ML IV ONE (14:10)
[2024-12-22] MEDS ORDERED: potassium Cl 40MEQ/1/2NS 520ml 520 ML IV PRN ×2 (15:30→15:35)
[2024-12-22] MEDS ORDERED: potassium Cl 40MEQ/270ML bag 270 ML IV PRN (15:30)
[2024-12-22] MEDS ORDERED: potassium Cl 20 mEq SR tablet PO PRN ×3 (15:30→15:35)
[2024-12-22] MEDS ORDERED: potassium CL 10mEq/100ml bag 100 ML IV PRN (15:35)
[2024-12-22] MEDS ORDERED: potassium Cl 40MEQ/270ML bag 250 ML IV PRN (15:35)
[2024-12-22] MEDS ORDERED: potassium Cl 20mEq/100mL bag 100 ML IV PRN (15:35)
[2024-12-22] MEDS: normal saline 1000ml 1,000 ML IV SCH (15:40)
[2024-12-22] MEDS: potassium Cl 20 mEq SR tablet PO ONE ×2 (15:41→15:45)
[2024-12-22] MEDS ORDERED: NO HOME MEDS (16:37)
[2024-12-22] MEDS: carVEDilol 3.125mg tablet PO SCH (20:00)
[2024-12-23] VITALS (9 sets, daily range): BP systolic 97–111; BP diastolic 62–68; PULSE 73–95; RESP 13–25; TEMP 96.9–98.4; O2SAT 95–98
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
--- NOTE | 2024-12-23 05:20 | CARDIOLOGY REPORT ---
DATE OF SERVICE: 12/22/2024 DICTATING PHYSICIAN: JANET Vigil MD CARDIAC CATHETERIZATION GENDER: Male AGE: 49 HEIGHT: 182.8 cm. WEIGHT: 93.18 kg. BODY SURFACE AREA: 2.15 m2. INDICATION: The patient is a 49-year-old male with chronic history of smoking with amphetamine abuse, 30 minutes arrival to the ER, developed severe substernal chest discomfort, sharpness, who came to the Emergency Room and found to have inferior and lateral ST elevation and ST depression in lead 1 and AVL. After discussing risks, benefits, and alternative options, the patient agreed to proceed with coronary angiography. Risks, benefits, and alternative options were discussed. Informed consent obtained. PROCEDURE TECHNIQUE: The patient underwent left heart catheterization from right radial approach, 6-[place] right radial sheath. Post-procedure access site hemostasis secured with right radial band. The patient had right heart catheterization from right femoral approach, 6-[place] right femoral artery sheath. Post-procedure access site sutured to the groin. The patient tolerated the procedure well. COMPLICATIONS: None. PROCEDURES DONE: * Ultrasound-guided right radial artery visualization and access. * Left heart catheterization. * Right heart catheterization. * LVG. * Coronary cineangiography. * Angioplasty of the proximal right coronary artery. * Stenting of the right coronary artery. * Intravascular ultrasound of the right coronary artery. * Conscious sedation 90 minutes. FINDINGS: HEMODYNAMICS: Aortic systolic was initially below 50s-60s, subsequently improved with Levophed to 100. Diastolic was 35. Aortic mean was 42 mmHg. LVDP of 16 mmHg. There is no significant gradient across the aortic valve. Pulmonary capillary wedge pressure 16 mmHg. Right atrial mean 10 mmHg. RV pressure 35/13 mmHg. PA pressure 32/19 mmHg. Aortic oxygen saturation 94%. Pulmonary artery oxygen saturation is 6%. Cardiac output by thermodilution method is 10.23 L and cardiac index is 4.75 L/min/m2. LEFT VENTRICULOGRAM: LV overall ventricular systolic function, now with an ejection fraction of 65%-70%. CORONARY CINEANGIOGRAPHY: Left main coronary artery is a large caliber arising from the left aortic sinus, engaged with JL4 catheter, right radial approach. No significant disease seen. LAD is a medium caliber vessel arising at the bifurcating left main coronary artery and coursing through the anterior interventricular groove, wrapping around the apex. Diagonal is a 3 mm, which divided into 2 divisions. Circumflex artery is a medium caliber vessel arising at the bifurcation of left main coronary artery and coursing through the left AV groove. It had mild luminal irregularities principal obtuse marginal branch, which is 3.5 mm in diameter. Principal OM is about 3-mm vessel, which divides into 2 divisions, superior division is about 2.5 mm in diameter and inferiorly 2 mm in diameter. Then, circumflex artery OM 2, 3, and 4 are 1.5-mm caliber vessel with minimal luminal irregularities and OM 5 is 2-mm caliber with mild luminal irregularities. The right coronary artery is a medium to large caliber dominant vessel arising from the aortic sinus and course through the interventricular groove, ends at the posterior crux by dividing into PDA and posterolateral branches. Proximal RCA has 98% thrombotic lesion. Diversion to distal PDA and posterolateral branch. Rest of the visualized had mild luminal irregularities. PDA is 3 mm with minimal luminal irregularities, posterolateral 2-mm caliber with mild luminal irregularities. PTCA STENTING OF THE PROXIMAL RIGHT CORONARY ARTERY: After adequate heparinization, PTCA stenting was carried out. A 6-[place] XT RCA guide without side hole gave good support. Lesion crossed with PT2 moderate wire. Lesion was angioplastied with 2.5/12 mm semi compliant balloon at 8 atmospheric pressure. Lesion was stented with 3.5 x 18 mm Resolute Colton stent at 12 atmospheric pressure. Post-procedure, there was a little bit of spasm at the proximal , which resolved with intracoronary nitroglycerin. INTRAVASCULAR ULTRASOUND: The patient did have intravascular ultrasound of the stented RCA with IVUS catheter and it showed that the stent was well deployed. There is significant amount of plaque. Proximally, there was only spasm with no edge dissection. IMPRESSION: A 49-year-old male with LVEF of 65%-70%. LVEDP of 16 mmHg with no gradient across the aortic valve. Pulmonary capillary wedge pressure of 16 mmHg. PA pressure of 32/19 mmHg. Left main normal. LAD with mild luminal irregularities. Circumflex with minimal disease. Proximal RCA, acute thrombotic 98% narrowing, successful angioplasty stented with 3.5 x 18 mm Resolute [place]. Intravascular ultrasound subsequently showed well-deployed stent with no edge dissection. RECOMMENDATIONS: Recommend continued aggressive coronary risk factor modification, namely low-fat, low-cholesterol diet, maintaining ideal body weight, keeping LDL less than 70 mg and regular exercise program. The importance of uninterrupted aspirin and Plavix for at least 1 year emphasized to the patient and his mother. The patient was recommended to quit amphetamines and tobacco abuse. JANET Vigil MD TID: [id number] RECEIPT: [id number] LEYLA/EDILMA/RACHAEL MTDD
--- NOTE | 2024-12-23 05:37 | ELECTROCARDIOGRAPH REPORT ---
[facility] Test Date: 2024-12-22 Test Time: 15:23:18 Pat Name: SANDOVAL JUAN Department: 2ND FLOOR [id number] Room: [address] Gender: M Manager Creative: : 1975 Requested By: EMELY FRY Order Number: [id number] Reading MD: Dr. JANET Vigil Measurements Intervals [place] Rate: 90 P: 79 DE: 162 QRS: 8 QRSD: 102 T: 9 QT: 393 QTc: 481 Interpretive Statements Age not entered, assumed to be 51 years old for purpose of ECG interpretation Sinus rhythm Probable inferior infarct, old Anterolateral infarct, age indeterminate Electronically Signed On 12-23-2024 19:13:[address] JANET Vigil Please click the below link to view image of tracing.
--- NOTE | 2024-12-23 05:38 | ELECTROCARDIOGRAPH REPORT ---
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 Channing Dale Measurements Intervals [place] Rate: 63 P: -24 RI: 144 QRS: 75 QRSD: 92 T: 100 QT: 411 QTc: 421 Interpretive Statements Sinus rhythm Repol abnrm suggests ischemia, lateral leads ST elevation, consider inferior injury Electronically Signed On 12-25-2024 21:45:[address] Channing Dale Please click the below link to view image of tracing.
[2024-12-23 06:03] LABS: ISTAT HGB ART 13.3 g/dl (14.0-17.9); ISTAT Hct ART 39 %PCV (42-52); ISTAT O2 SATURATION ARTERIAL 94 % (95-98); ISTAT SOURCE BLNK
[2024-12-23 06:04] LABS: ISTAT HGB MIX 13.6 g/dl (14.0-17.9); ISTAT Hct MIX 40 %PCV (42-52); ISTAT O2 SATURATION MIX VENOUS 76 % (60-80); ISTAT SOURCE BLNK
[2024-12-23] MEDS ORDERED: aspirin 81mg, enteric-coated 1 TAB TABLET.DR PO SCH (08:00)
[2024-12-23] MEDS ORDERED: K and/or MAG REPLACEMENT MC SCH (08:00)
[2024-12-23] MEDS: lisinopril 5mg tablet PO SCH (08:00)
[2024-12-23 08:11] LABS: BASOPHILS # (AUTO) 0.1 X10'3 (0-0.2); BASOPHILS % (AUTO) 0.6 % (0-1); EOSINOPHILS # (AUTO) 0.2 X10'3 (0-0.9); EOSINOPHILS % (AUTO) 2.2 % (0-6); HEMATOCRIT 40.8 % (42.0-52.0); HEMOGLOBIN 13.6 g/dl (14.0-17.9); LYMPHOCYTES # (AUTO) 1.9 X10'3 (1.1-4.8); LYMPHOCYTES % (AUTO) 21.2 % (21-51); MEAN CORPUSCULAR HEMOGLOBIN 31.8 PG (27.0-31.0); MEAN CORPUSCULAR HGB CONC 33.3 g/dL (33.0-36.5); MEAN CORPUSCULAR VOLUME 95.5 FL (78-98); MEAN PLATELET VOLUME 7.1 FL (7.4-10.4); MONOCYTES # (AUTO) 0.7 X10'3 (0-0.9); MONOCYTES % (AUTO) 7.7 % (2-12); NEUTROPHILS # (AUTO) 6.1 X10'3 (1.8-7.7); NEUTROPHILS % (AUTO) 68.3 % (42-75); PLATELET COUNT 281 X10'3 (140-440); RED BLOOD COUNT 4.27 X10'6 (4.70-6.10); WHITE BLOOD COUNT 8.9 X10'3 (4.5-11.0)
[2024-12-23] MEDS: clopidogrel 75mg tablet PO SCH (08:20)
[2024-12-23] MEDS: aspirin 81mg, enteric-coated 1 TAB TABLET.DR PO SCH (08:21)
[2024-12-23] MEDS: atorvastatin 20mg tablet PO SCH (08:22)
[2024-12-23 08:42] LABS: APTT 27 SECONDS (22-32); PROTHROMBIN TIME 10.4 SECONDS (9.0-12.0)
[2024-12-23 08:49] LABS: ALANINE AMINOTRANSFERASE 49 U/L (12-78); ALBUMIN 2.8 G/DL (3.4-5.0); ALBUMIN/GLOBULIN RATIO 0.9 (1.1-1.5); ALKALINE PHOSPHATASE 69 IU/L (46-116); ANION GAP 7 (8-16); ASPARTATE AMINO TRANSFERASE 109 U/L (10-37); BILIRUBIN,TOTAL 0.6 MG/DL (0.1-1.0); BLOOD UREA NITROGEN 7 MG/DL (7-18); BUN/CREATININE RATIO 8.1 (10.0-20.0); CALCIUM 8.1 MG/DL (8.5-10.1); CHLORIDE 107 MMOL/L (99-107); CREATININE 0.86 MG/DL (0.60-1.10); GLUCOSE 86 MG/DL (70-104); MAGNESIUM 1.9 MG/DL (1.5-2.4); PHOSPHORUS 3.7 MG/DL (2.3-4.5); PRO BRAIN NATRIURETIC PEPTIDE 647 PG/ML (0-125); SODIUM 138 MMOL/L (135-145); TOTAL CARBON DIOXIDE 23.6 MMOL/L (24-32); TOTAL PROTEIN 5.9 G/DL (6.4-8.2); eCRCL 115 ML/MIN; eGFR > 90 ML/MIN
[2024-12-23 08:54] LABS: POTASSIUM 4.3 MMOL/L (3.5-5.1)
--- NOTE | 2024-12-23 08:54 | ELECTROCARDIOGRAPH REPORT ---
[facility] Test Date: 2024-12-23 Test Time: 08:53:28 Pat Name: SANDOVAL JUAN Department: [facility] 3S Room: [place] [address] [address] Gender: M Time Study Technologist: GRACIE : 1975 Requested By: THERESA VIGIL Order Number: [id number] Reading MD: Dr. JANET Vigil Measurements Intervals [place] Rate: 96 P: 78 [place]: 145 QRS: -20 QRSD: 91 T: -26 QT: 366 QTc: 463 Interpretive Statements Sinus rhythm Abnormal R-wave progression, early transition Inferior infarct, age indeterminate Electronically Signed On 12-23-2024 19:13:[address] JANET Vigil Please click the below link to view image of tracing.
[2024-12-23] MEDS: PERFLUTREN PROTEIN-A MICROSPHR (Optison) 0.22 MG/ML 3ML VIAL IV ONE (11:30)
--- NOTE | 2024-12-23 18:21 | PROGRESS NOTE- Residence ---
Progress Note - Resident Providers to CC Resident Creating Document: SUSIE CLARK RES CC: FABIÁN VALENCIA MD ~ Antibiotic Timeout Antibiotic Ordered?: No Subjective Patient was examined at bedside. Patient does not complain of chest pain. No subjective complaints or acute overnight events. Objective Vital Signs Date Time Temp Pulse Resp B/P (MAP) Pulse Ox O2 Delivery O2 Flow Rate FiO2 12/23/24 15:42 98.0 95 20 110/66 (81) 96 Room Air 12/22/24 20:00 0.0 Result Diagram: 12/23/24 0754 12/23/24 0754 General: Alert, awake, oriented, not in acute distress HEENT: PERRLA, no icterus, pallor, lymphadenopathy, carotid bruit Respiratory system: Bilateral vesicular breath sounds heard, no adventitious breath sounds CVS: S1-S2 heard, no murmurs/rubs/gallop GI: Soft, nontender, no organomegaly, no guarding/rigidity, bowel sounds present Neuro: No focal neurological deficits present Extremities: Femoral access site for catheterization is clean without hematoma redness or warmth or erythema, No edema cyanosis clubbing/deformities Skin: Warm and dry Coagulation Studies Laboratory Tests Test 12/22/24 13:18 12/23/24 07:54 Activated Clotting Time 198 SEC (101-148) H Prothrombin Time 10.4 SECONDS (9.0-12.0) INR International Normalized Ratio 1.0 INR Activated Partial Thromboplast Time 27 SECONDS (22-32) Coagulation Comments Assessment Assessment This is a 49-year-old male who was brought to the ER by his mother (Andreea Cam [phone]) after a sudden onset of severe, crushing chest pain. EKG showed ST elevations in the inferior leads. STEMI was called. Patient was transferred to the warehouse laborer with stent placed in the RCA on 12/22/2024 Plan Plan STEMI status post stent in RCA on 12/22/2024 Heparin drip discontinued Continue aspirin 162 mg, Plavix 75 mg, atorvastatin 80 mg, carvedilol 3.125 mg, and lisinopril 5 mg Sublingual nitroglycerin p.r.n. for chest pain EKG in a.m. Counseling on methamphetamine use and DAPT for one year Hyperlipidemia: LDL 131, goal < 70 Continue atorvastatin 80 mg daily Repeat lipid panel in three months outpatient Methamphetamine use disorder: Chronic methamphetamine use; 30 years Major risk factor for vasospasm, arrhythmia, and premature CAD Toxicology screen obtained Dr. Vigil educated him on Cardiac risk of continued meth use environmental services coordinator consult, substance use navigator consult requested Tobacco use disorder: Longstanding daily smoking Strongly encouraged smoking cessation Social and living situation/barriers to care Lives in a trailer on mother's property; no PCP We will consider involving social work for support with follow up, transportation, and linkage to primary care We will discuss close outpatient cardiology follow up post discharge Code status: Full code Anticoagulation: Aspirin, Plavix Diet: Heart healthy Disposition: Continue care in PCU, probable discharge tomorrow, EKG in a.m. Susie Clark MD Internal Medicine, PGY 1 Date of Service: December 23, 2024 Billing Provider: FABIÁN VALENCIA MD Common Visit Codes: [id number] INP/OBS CARE(HIGH) SUSIE CLARK, RES December 23, 2024 18:21 FABIÁN VALENCIA MD December 25, 2024 17:33
--- NOTE | 2024-12-23 19:12 | PROGRESS NOTE ---
Progress Note Cardiology Providers to CC ~ Subjective Subjective Patient seen and examined this evening. Overall he is doing well with no chest pain or shortness of breath. Objective Result Diagram: 12/23/24 0754 12/23/24 0754 Objective General: Normal body habitus, no acute distress, HEENT: Sclerae clear, PERRL, gums without lesions or bleeding, oropharynx clear without erythema or exudate. Neck: Supple without enlargement of the thyroid, or lymphadenopathy, Chest: Normal size and shape, no tenderness, nonlabored breathing, Breath sounds clear to auscultation. Heart: Regular in rate and rhythm, S1 and S2 normal, no S3-S4 or murmurs. Abdomen: Soft, nontender, no organomegaly, bowel sounds present. Extremities: No edema cyanosis or clubbing. Coagulation Studies Laboratory Tests Test 12/22/24 13:18 12/23/24 07:54 Activated Clotting Time 198 SEC (101-148) H Prothrombin Time 10.4 SECONDS (9.0-12.0) INR International Normalized Ratio 1.0 INR Activated Partial Thromboplast Time 27 SECONDS (22-32) Coagulation Comments Problem\Assessment\Plan Additional Plan 1. * A 49-year-old chronic methamphetamine user, last use yesterday morning and a current tobacco smoker, presenting with STEMI, inferolateral ST elevation. Patient underwent coronary angiography On 12/13 found to have 98% thrombotic occlusion of proximal RCA which was successfully angioplastied and stented with 3.5/18 resolute sakina stent. Importance of uninterrupted aspirin and Plavix at least for one year emphasized to the patient. 2. * Chronic history of tobacco use and possible COPD, continue smoking cessation. 3. * Chronic methamphetamine abuse, counselled on methamphetamine abuse cessation. Patient to follow up with PMD. THERESA MUJICA MD December 23, 2024 19:12
--- NOTE | 2024-12-23 19:23 | CARDIOLOGY REPORT ---
APPROVED REPORT EXAM: Comprehensive 2D, Doppler, and color-flow Echocardiogram. Patient Location: [address] Blood Pressure: 110/66 mmHg Heart Rate: 82 bpm Rhythm: SINUS Indications CORONARY ARTERY DISEASE SMOKER METHAMPHETAMINE USE STEMI, S/P RCA STENT X1 Golf Sales Associate: Brody Vigil MD (consult) Previous echo: none 2D Dimensions IVSd 1.2 (0.7-1.1cm) LVDd 3.8 cm PWd 1.0 (0.7-1.1cm) IVSs 1.3 (0.8-1.2cm) LVDs 2.7 (2.5-4.0cm) PWs 1.3 (0.8-1.2cm) LVOT Diameter 2.15 (1.8-2.4cm) LVEF(%) 56.0 (>50%) Ao Asc Diam.3.19 cmIVC 12.64 mm FS (%) 28.7 % SV 34.8 ml CO 3.0 L/min M-Mode Dimensions Left Atrium(MM) 3.05 (2.5-4.0cm) Aortic Root 2.92 (2.2-3.7cm) Aortic Cusp Exc 2.33 (1.5-2.0cm) Aortic Valve AoV Peak Shantanu. 153.8 cm/s AoV VTI 26.3 cm AO Peak GR. 9.5 mmHg AO Mean GR. 5 mmHg LVOT VTI 21.71 cm LVOT Peak Shantanu. 111.6 cm/s SANDRA(VTI)/BSA 3.00 cm2/m2 SANDRA (VTI) 3.00 cm2 Mitral Valve MV E Velocity 99.5 cm/s MV Peak Gr. 4 mmHg MV DECEL TIME 240 ms MV A Velocity 78.9 cm/s MV PHT 56 ms E/A Ratio 1.3 MVA (PHT) 3.93 cm2 MV VMax96.9 cm/s TDI Medial E' P. V 10.37 cm/s E/Medial E' 9.6 Pulmonary Vein S1 Velocity 42.3 cm/s D2 Velocity 30.9 cm/s PVa Qsaxeprk19.9 cm/s PVa Bpmycbtf01 msec LEFT VENTRICLE Small LV size and normal function. Mild concentric hypertrophy. Overall LVEF is 55-60%. RIGHT VENTRICLE RV is normal size and function. ATRIA LA size is normal. AORTIC VALVE Trileaflet AV appears mildly sclerotic without stenosis. Trivial insufficiency. MITRAL VALVE Mild MV annular calcification without stenosis. Mild regurgitation. TRICUSPID VALVE TV appears structurally normal with trace regurgitation. PULMONIC VALVE Normal PV without stenosis, physiologic insufficiency. GREAT VESSELS Aortic root is normal in size. Ascending aorta is normal in size. The IVC is normal in size and colla pses greater than 50% with inspiration. PERICARDIUM Normal pericardium. No effusion. Other Information Study Quality: Adequate Conclusion Overall LVEF is 55-60%. Small LV size and normal function. Mild concentric hypertrophy. RV is normal size and function. Trileaflet AV appears mildly sclerotic without stenosis. Trivial insufficiency. Mild MV annular calcification without stenosis. Mild regurgitation. TV appears structurally normal with trace regurgitation. Normal PV without stenosis, physiologic insufficiency. Normal pericardium. No effusion.
[2024-12-23] MEDS: nicotine 14mg patch - 24hr TD ONE (22:53)
[2024-12-24 02:00] VITALS: BP 97/59; PULSE 76; RESP 20; TEMP 98.3; O2SAT 97
[2024-12-24 06:51] VITALS: BP 103/68; PULSE 85; RESP 20; TEMP 98.7; O2SAT 97
[2024-12-24 08:00] VITALS: RESP 20; O2SAT 85
--- NOTE | 2024-12-24 09:24 | ELECTROCARDIOGRAPH REPORT ---
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 JANET Vigil Measurements Intervals [place] Rate: 96 P: 86 OR: 145 QRS: -29 QRSD: 91 T: -47 QT: 405 QTc: 512 Interpretive Statements Sinus rhythm Probable inferior infarct, old Anterolateral infarct, age indeterminate Prolonged QT interval Electronically Signed On 12-24-2024 17:45:[address] JANET Vigil Please click the below link to view image of tracing.
--- NOTE | 2024-12-24 09:42 | PROGRESS NOTE ---
Progress Note Cardiology Providers to CC ~ Subjective Subjective Patient seen and examined this morning before discharge. Overall he is doing well. No chest pain or shortness of breath. Objective Result Diagram: 12/23/24 0754 12/23/24 0754 Objective General: Normal body habitus, no acute distress, HEENT: Sclerae clear, PERRL, gums without lesions or bleeding, oropharynx clear without erythema or exudate. Neck: Supple without enlargement of the thyroid, or lymphadenopathy, Chest: Normal size and shape, no tenderness, nonlabored breathing, Breath sounds improved in bases. Heart: Regular in rate and rhythm, S1 and S2 normal, no S3-S4 or murmurs. Abdomen: Soft, nontender, no organomegaly, bowel sounds present. Extremities: No edema cyanosis or clubbing. Coagulation Studies Laboratory Tests Test 12/22/24 13:18 12/23/24 07:54 Activated Clotting Time 198 SEC (101-148) H Prothrombin Time 10.4 SECONDS (9.0-12.0) INR International Normalized Ratio 1.0 INR Activated Partial Thromboplast Time 27 SECONDS (22-32) Coagulation Comments Problem\Assessment\Plan Additional Plan 1. * A 49-year-old chronic methamphetamine user, last use yesterday morning and a current tobacco smoker, presenting with STEMI, inferolateral ST elevation. Patient underwent coronary angiography On 12/13 found to have 98% thrombotic occlusion of proximal RCA which was successfully angioplastied and stented with 3.5/18 resolute sakina stent. Importance of uninterrupted aspirin and Plavix at least for one year emphasized to the patient. 2. * Chronic history of tobacco use and possible COPD, continue smoking cessation. 3. * Chronic methamphetamine abuse, counselled on methamphetamine abuse cessation. Discussion with patient about stopping methamphetamine abuse cessation. Patient responded by saying that he does not think it is related to his heart attack and probably he will continue to use it. Patient to follow up with PMD. THERESA MUJICA MD December 24, 2024 09:42
[2024-12-24 11:00] VITALS: BP 106/66; PULSE 85; RESP 14; TEMP 97.7; O2SAT 95
[2024-12-24] MEDS ORDERED: CLOP75TA34 PO (12:47)
[2024-12-24] MEDS ORDERED: ASPI-1071 PO (12:47)
[2024-12-24] MEDS ORDERED: CARV-164 PO (12:47)
[2024-12-24] MEDS ORDERED: ATOR20TA66 PO (12:47)
[2024-12-24] MEDS ORDERED: LISI5TAB22 PO (12:47)
[2024-12-24 15:00] VITALS: BP 103/65; PULSE 99; RESP 13; TEMP 98.7; O2SAT 93
--- NOTE | 2024-12-24 17:59 | DISCHARGE SUMMARY-Residence ---
Discharge Summary Providers to CC Resident Creating Document: SUSIE GÓMEZ, RES CC: FABIÁN VALENCIA MD ~ Discharge Summary Assessment This is a 49-year-old male who was brought to the ER by his mother (Andreea Cam [phone]) after a sudden onset of severe, crushing chest pain. EKG showed ST elevations in the inferior leads. STEMI was called. Patient was transferred to the analytical lab analyst with stent placed in the RCA on 12/22/2024 Admission Diagnosis: STEMI Hospital Course DATE OF ADMISSION: 12/22/24 DATE OF DISCHARGE: 12/24/24 Discharge Diagnosis\Comment: STEMI Hyperlipidemia Methamphetamine use disorder Tobacco use disorder Unstable social and living situation barriers Operations\Procedures: Cardiac catheterization Consultants: Dr. Vigil (business intelligence administrator) Complications: None Condition on DC: Stable New Medications: Aspirin (Ecotrin*) 81 Mg Tablet.dr 2 TAB PO DAILY for 30 Days, #60 TAB.SR Atorvastatin Calcium (Atorvastatin Calcium) 20 Mg Tablet 80 MG PO DAILY for 30 Days, #30 TAB Carvedilol (Carvedilol) 3.125 Mg Tablet 3.125 MG PO BID for 30 Days, #30 TAB Clopidogrel Bisulfate (Clopidogrel) 75 Mg Tablet 75 MG PO DAILY for 90 Days, #90 TAB Do not stop medication unless instructed by prescriber. Lisinopril (Lisinopril) 5 Mg Tablet 5 MG PO DAILY for 30 Days, #30 TAB Discontinued Medications: Home Med List (No Home Medications) Each Discharge Summary: 49-year-old male was brought into the ER by his mother in view of crushing chest pain, was found to have elevated troponins and EKG showed ST elevations in the inferior leads. Patient was emergently taken to the cardiac catheterization lab. Patient was found to have 90% stenosis of the right coronary artery which was stented. Patient was observed for another day, EKG was reason which showed appropriate progression of STEMI with ST depressions and T-wave depressions. Patient was able to walk without any chest pain and was chest pain-free. Patient's femoral access site is clean without hematoma, erythema or warmth. Patient's medications have been optimized as per GDM T. Patient is hemodynamically stable for discharge. Patient was clearly consult about quitting methamphetamine and tobacco use. Physical examination at discharge: General: Alert, awake, oriented, not in acute distress HEENT: PERRLA, no icterus, pallor, lymphadenopathy, carotid bruit Respiratory system: Bilateral vesicular breath sounds heard, no adventitious breath sounds CVS: S1-S2 heard, no murmurs/rubs/gallop GI: Soft, nontender, no organomegaly, no guarding/rigidity, bowel sounds present Neuro: No focal neurological deficits present Extremities: Femoral access site for catheterization is clean without hematoma redness or warmth or erythema, No edema cyanosis clubbing/deformities Skin: Warm and dry Labs at discharge: WBC: 8.9, H/H: 13.6/40.8, platelet count: 281 Sodium: 138, potassium: 4.2, BUN: Seven, creatinine: 0.86 Imaging: Echo:Overall LVEF is 55-60%. Small LV size and normal function. Mild concentric hypertrophy. RV is normal size and function. Discharge medications can be found above patient is discharged home with the following recommendations: Follow up with your primary care within two weeks of discharge. Follow up with Dr. Vigil(business intelligence administrator) within two weeks of discharge. Please take aspirin and Plavix for one year, strict recommendation. Please maintain compliance We also gave you statin, please maintain compliance We gave you lisinopril and carvedilol which will optimize your heart function, please maintain compliance Strict recommendation to quit methamphetamine. Return to ER in view of chest pain, palpitations, dizziness, shortness of breaths. *Problems/Diagnosis: (1) STEMI (ST elevation myocardial infarction) Status: Acute (2) Methamphetamine abuse Status: Acute Total Time Spent on D/C: > 30 Minutes Date of Service: December 24, 2024 Billing Provider: FABIÁN VALENCIA MD Common Visit Codes: 77186-BFX/OBS DISCH DAY >30min Problem Qualifiers (1) STEMI (ST elevation myocardial infarction): Involved coronary artery: unspecified coronary artery Qualified Codes: I21.3 - ST elevation (STEMI) myocardial infarction of unspecified site SUSIE GÓMEZ RES December 24, 2024 17:59 FABIÁN VALENCIA MD December 25, 2024 17:33
== END 2024-12-24 15:20 | disposition home or self-care (01) | DRG 174 ==
LOC: ER 11:33 → ED HOLD 12:15 → CICU 2S 15:20 → PCU 3S 22:00
PROVIDERS: ADMIT Family Medicine; ATTEND Family Medicine
PROC: 027034Z Dilation of Coronary Artery, One Artery with Drug-eluting Intraluminal Device, Percutaneous Approach (ICD-10-PCS; principal; 2024-12-22)
PROC: 4A023N8 Measurement of Cardiac Sampling and Pressure, Bilateral, Percutaneous Approach (ICD-10-PCS; 2024-12-22)
PROC: B2111ZZ Fluoroscopy of Multiple Coronary Arteries using Low Osmolar Contrast (ICD-10-PCS; 2024-12-22)
PROC: B2151ZZ Fluoroscopy of Left Heart using Low Osmolar Contrast (ICD-10-PCS; 2024-12-22)
PROC: B240ZZ3 Ultrasonography of Single Coronary Artery, Intravascular (ICD-10-PCS; 2024-12-22)
DX: I21.19 ST elevation (STEMI) myocardial infarction involving other coronary artery of inferior wall (principal); E78.5 Hyperlipidemia, unspecified; F15.10 Other stimulant abuse, uncomplicated; F17.210 Nicotine dependence, cigarettes, uncomplicated
CPT/HCPCS: 36415; 76937; 80048; 80053; 80061; 82803; 83036; 83735; 83880; 84100; 84132; 84484; 85014; 85025; 85347; 85610; 85730; 87081; 92978; 93005; 93306; 93460; 96365; 96375; 99152; 99153; 99291; A6258; C1725; C1751; C1753; C1769; C1874; C1894; C9606; G0378; J0461; J1250; J1265; J1644; J2003; J2060; J2250; J2371; J3010; J3475; J3490; J7030; Q9967